=== PATIENT | male | born 1965 ===

== ENCOUNTER 2018-11-14 20:26 | Emergency (ER) | payer OTHER ==
[2018-11-14 20:42] VITALS: BP 137/88; PULSE 81; RESP 18; TEMP 98.4; O2SAT 100
[2018-11-14] MEDS ORDERED: Lidocaine 5% Patch TD STA (21:00)
--- NOTE | 2018-11-14 21:02 | C.PDOC ---
History Of Present Illness 53 year old male presents to the ED for evaluation of left-sided mid lower back pain s/p fall sustained 2 days ago. The patient reports he fell onto his back resulting in current symptoms. Notes the pain is worse with movement and tight. Admits he has not taken any medications for the pain. Denies LOC, numbness, tingling, and any other associated symptoms. Time Seen by Provider: 11/14/18 20:54 Chief Complaint (Nursing): Back Pain History Per: Patient History/Exam Limitations: no limitations Onset/Duration Of Symptoms: Days (x2) Current Symptoms Are (Timing): Still Present Past Medical History Reviewed: Historical Data, Nursing Documentation, Vital Signs Vital Signs: Last Vital Signs Temp 98.4 F 11/14/18 20:38 Pulse 81 11/14/18 20:38 Resp 18 11/14/18 20:38 BP 137/88 11/14/18 20:38 Pulse Ox 100 11/14/18 20:38 Family History: States: Unknown Family Hx - Social History Hx Alcohol Use: Yes Hx Substance Use: No - Immunization History Hx Tetanus Toxoid Vaccination: No Hx Influenza Vaccination: No Hx Pneumococcal Vaccination: No Review Of Systems Except As Marked, All Systems Reviewed And Found Negative. Musculoskeletal: Positive for: Back Pain (left sided mid lower back pain. ) Neurological: Negative for: Weakness, Numbness, Incoordination, Other (LOC) Physical Exam - Physical Exam Appears: Well, Non-toxic, No Acute Distress Skin: Normal Color, Warm, Dry, Other (back: skin intact. ) Head: Atraumatic, Normacephalic Eye(s): bilateral: Normal Inspection Oral Mucosa: Moist Neck: Normal ROM, Supple Respiratory: Other (NARD) Back: Muscle Spasm, No Paraspinal Tenderness (lumbar.), Other (tenderness to the middle of the back.) ED Course And Treatment O2 Sat by Pulse Oximetry: 100 (RA) Pulse Ox Interpretation: Normal Medical Decision Making Medical Decision Making: Plan: -Lidoderm Toradol Valium Progress/Update: Patient stable for discharge home. Prescribed Valium, Motrin, and Lidoderm. Patient advised to follow up PMD within 1-2 days. Disposition Counseled Patient/Family Regarding: Diagnosis, Need For Followup, Rx Given - Disposition Referrals: Urbano Soria MD [Primary Care Provider] - Disposition: HOME/ ROUTINE Disposition Time: 21:01 Condition: IMPROVED Prescriptions: diaZEpam [Valium] 5 mg PO TID PRN #15 tab PRN Reason: Muscle Spasm Ibuprofen [Motrin] 600 mg PO Q6 #30 tab Lidocaine 5% [Lidoderm] 1 ea TD PRN PRN #10 patch PRN Reason: Pain, Moderate (4-7) Instructions: Muscle Spasms (DC) Forms: [employer] (Frisian), Work Excuse Print Language: WELSH - Clinical Impression Clinical Impression: Lumbar sprain, Contusion of back - Scribe Statement The provider has reviewed the documentation as recorded by the Scribe (Jenni Romano) Provider Attestation: All medical record entries made by the Scribe were at my direction and personally dictated by me. I have reviewed the chart and agree that the record accurately reflects my personal performance of the history, physical exam, medical decision making, and the department course for this patient. I have also personally directed, reviewed, and agree with the discharge instructions and disposition.
[2018-11-14] MEDS ORDERED: Lidocaine 5% Patch TD ONE (21:06)
== END 2018-11-14 21:17 | disposition home or self-care (01) ==
LOC: C.ER 20:26 → SUPCPDRO 20:26 → C.ER 21:17
DX: S33.5XXA Sprain of ligaments of lumbar spine, initial encounter (principal); S30.0XXA Contusion of lower back and pelvis, initial encounter; W19.XXXA Unspecified fall, initial encounter
CPT/HCPCS: 96372; 99283; J1885